=== PATIENT | female | born 1955 ===

== ENCOUNTER 2017-09-13 18:45 | Observation (INO) | payer BC ==
[2017-09-13 18:45] VITALS: BMI 26.9
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
[2017-09-13] MEDS ORDERED: Sodium Chloride 0.9% 500 ML IV STA (20:41)
[2017-09-13 21:31] LABS: BASO % 0.4 % (0.0-2.0); EOS # 0.2 K/uL (0.0-0.7); EOS % 1.6 % (0.0-4.0); LYMPH # 1.6 K/uL (1.0-4.3); LYMPH % 14.5 % (20.0-40.0); MEAN CELL VOLUME 84.2 fl (81.0-99.0); MEAN CORPUSCULAR HEMOGLOBIN 28.4 pg (27.0-31.0); MEAN CORPUSCULAR HGB CONC 33.7 g/dL (33.0-37.0); MEAN PLATELET VOLUME 7.6 fl (7.2-11.7); MONO # 0.3 K/uL (0.0-0.8); MONO % 3.2 % (0.0-10.0); NEUT # 8.7 K/uL (1.8-7.0); NEUT % 80.3 % (50.0-75.0); NRBC % 0.1 % (0.0-0.0); RBC 4.57 Mil/uL (3.80-5.20); WHITE BLOOD COUNT 10.8 K/uL (4.8-10.8)
[2017-09-13 21:42] LABS: ALB/GLOB RATIO 1.4 (1.0-2.1); ALT/SGPT 26 U/L (9-52); AST/SGOT 19 U/L (14-36); BLOOD UREA NITROGEN 15 mg/dl (7-17); GFR AFRICAN-AMERICAN > 60; GFR NON-AFRICAN AMERICAN > 60
[2017-09-13 21:45] LABS: PROTHROMBIN TIME 11.3 Seconds (9.8-13.1)
[2017-09-14] MEDS: Lactated Ringer's 1,000 ML IV SCH ×2 (06:12→16:41)
--- NOTE | 2017-09-14 09:22 | CARD ---
APPROVED REPORT EKG Measurement Heart [id number] <Conclusion> Normal sinus rhythm Left axis deviation Abnormal ECG
--- NOTE | 2017-09-14 11:02 | CT ---
PROCEDURE: CT right upper extremity without contrast History: Trauma Comparison: Right wrist 09/13/2017 Technique: Multiple contiguous axial images were performed through the pertinent right wrist without the use of intravenous contrast. Subsequently, sagittal and coronal reformatted images were obtained. This CT exam was performed using one or more of the following dose reduction techniques: Automated exposure control, adjustment of the mA and/or kV according to patient size, and/or use of iterative reconstruction technique. FINDINGS: Distal comminuted radial metaphyseal - epiphyseal acute fracture. Radiocarpal extension. The volar fracture fragment most proximal 1 is angulated volarly -distal tip at the radial lunate articulation the diastases of the fracture fragments is at least 4 mm. A distal ulnar styloid fracture fragment also noted. No dislocation appreciated Overlying soft tissue swelling present IMPRESSION: Intra articular acute distal comminuted radial metaphyseal epiphyseal fracture. Diastases of fracture fragments. Overlying soft tissue swelling. Small ulnar styloid fracture fragment also noted. No dislocation Concordant results (preliminary interpretation) provided by [facility].
--- NOTE | 2017-09-14 11:04 | RAD ---
PROCEDURE: Radiographs of the right elbow. HISTORY: pain from fall COMPARISON: No prior. FINDINGS: BONES: Questionable coronoid process fracture. JOINTS: Unremarkable. SOFT TISSUES: Normal. JOINT EFFUSION: None. OTHER FINDINGS: None. IMPRESSION: Questionable coronoid process fracture. ER notification submitted electronically.
--- NOTE | 2017-09-14 11:05 | RAD ---
PROCEDURE: Right Wrist Radiographs. HISTORY: pain from fall COMPARISON: None. FINDINGS: BONES: Comminuted distal radial fracture with extension to the radiocarpal articulation. Minimally displaced ulnar styloid fracture. JOINTS: Normal. No dislocation. SOFT TISSUES: Normal. OTHER FINDINGS: None. IMPRESSION: Comminuted, intra-articular distal radial fracture. Minimally displaced ulnar styloid fracture.
--- NOTE | 2017-09-14 11:08 | CT ---
PROCEDURE: CT HEAD WITHOUT CONTRAST. HISTORY: headache COMPARISON: None available. TECHNIQUE: Axial computed tomography images were obtained through the head/brain without intravenous contrast. Radiation dose: Total exam DLP = 814.9 mGy-cm. This CT exam was performed using one or more of the following dose reduction techniques: Automated exposure control, adjustment of the mA and/or kV according to patient size, and/or use of iterative reconstruction technique. FINDINGS: HEMORRHAGE: No intracranial hemorrhage. BRAIN: No mass effect or edema. No atrophy or chronic microvascular ischemic changes. VENTRICLES: Unremarkable. No hydrocephalus. CALVARIUM: Unremarkable. PARANASAL SINUSES: Left frontal, left maxillary and bilateral scattered ethmoid air cell opacification. Non pneumatization of the right frontal sinus. MASTOID AIR CELLS: Unremarkable as visualized. No inflammatory changes. OTHER FINDINGS: High right parietal scalp swelling. IMPRESSION: High right parietal scalp swelling. No calvarial fracture. No acute intracranial pathology.
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
--- NOTE | 2017-09-14 14:36 | RAD ---
HISTORY: Pre-op COMPARISON: 02/15/2016 FINDINGS: LUNGS: No active pulmonary disease. PLEURA: No significant pleural effusion identified, no pneumothorax apparent. CARDIOVASCULAR: Normal. OSSEOUS STRUCTURES: No significant abnormalities. VISUALIZED UPPER ABDOMEN: Normal. OTHER FINDINGS: None. IMPRESSION: No active disease.
[2017-09-14] MEDS ORDERED: Propofol 10 mg/ml Inj (20 ML) ONE (16:41)
[2017-09-14] MEDS ORDERED: Etomidate 20 mg/10ml Inj IV ONE (16:46)
[2017-09-14] MEDS ORDERED: Ropivacaine 0.5% 30ML IV ONE (16:47)
[2017-09-14] MEDS ORDERED: Lactated Ringer's 500 ML IV ONE ×2 (17:35→18:52)
[2017-09-14] MEDS ORDERED: Midazolam 2 MG/2 ML VIAL ONE (17:46)
[2017-09-14] MEDS ORDERED: Succinylcholine 200 mg/10 ml Inj IV ONE (17:56)
[2017-09-14] MEDS ORDERED: Dexamethasone 4 mg/1 ml ONE (18:03)
[2017-09-14] MEDS ORDERED: Neostigmine 1:1000 (1 mg/ml) Inj ONE (18:11)
[2017-09-14] MEDS ORDERED: Rocuronium 10 mg/ml (5 ml) ONE (18:12)
--- NOTE | 2017-09-14 18:27 | CP.PCM.CON ---
History of Present Illness - History of Present Illness History of Present Illness: came to evaluate patient but she is in the OR Past Patient History - Infectious Disease Hx of Infectious Diseases: None - Past Medical History & Family History Past Medical History?: Yes - Past Social History Smoking Status: Never Smoked - CARDIAC Hx Cardiac Disorders: Yes Hx Hypertension: Yes - PULMONARY Hx Respiratory Disorders: Yes Hx Asthma: Yes - NEUROLOGICAL Hx Neurological Disorder: No - HEENT Hx HEENT Problems: No - RENAL Hx Chronic Kidney Disease: No - ENDOCRINE/METABOLIC Hx Endocrine Disorders: Yes Hx Diabetes Mellitus Type 2: Yes - HEMATOLOGICAL/ONCOLOGICAL Hx Blood Disorders: No - INTEGUMENTARY Hx Dermatological Problems: No - MUSCULOSKELETAL/RHEUMATOLOGICAL Hx Musculoskeletal Disorders: No Hx Falls: No - GASTROINTESTINAL Hx Gastrointestinal Disorders: No - GENITOURINARY/GYNECOLOGICAL Hx Genitourinary Disorders: No - PSYCHIATRIC Hx Psychophysiologic Disorder: Yes Hx Anxiety: Yes Hx Substance Use: No - SURGICAL HISTORY Hx Surgeries: Yes Hx Coronary Stent: Yes (LAD stent, 2013) - ANESTHESIA Hx Anesthesia: Yes Hx Anesthesia Reactions: No Hx Malignant Hyperthermia: No Meds Allergies/Adverse Reactions: Allergies Allergy/AdvReac Type Severity Reaction Status Date / Time No Known Allergies Allergy Verified 09/13/17 18:47 - Medications Medications: Current Medications Atorvastatin Calcium (Lipitor) 40 mg PO HS JULIANN Enoxaparin Sodium (Lovenox) 40 mg SC DAILY [facility] PRN Reason: Protocol Lactated Ringer's (Lactated Ringer's) 1,000 mls @ 100 mls/hr IV .Q10H [facility] Last Admin: 09/14/17 16:41 Dose: 100 mls/hr Metoprolol Tartrate (Lopressor) 25 mg PO Q12 [facility] Last Admin: 09/14/17 14:48 Dose: 25 mg Results - Vital Signs Recent Vital Signs: Last Vital Signs Temp 98.4 F 09/14/17 16:28 Pulse 65 09/14/17 16:28 Resp 20 09/14/17 16:28 BP 150/87 09/14/17 16:28 Pulse Ox 99 09/14/17 16:28 - Labs Result Diagrams: 09/13/17 21:24 09/13/17 21:24 Labs: Laboratory Results - last 24 hr 09/13/17 09/13/17 09/13/17 21:24 21:24 21:24 WBC 10.8 RBC 4.57 Hgb 13.0 Hct 38.5 MCV 84.2 MCH 28.4 MCHC 33.7 RDW 14.0 Plt Count 376 MPV 7.6 Neut % (Auto) 80.3 H Lymph % (Auto) 14.5 L [place] % (Auto) 3.2 Eos % (Auto) 1.6 Baso % (Auto) 0.4 Neut # (Auto) 8.7 H Lymph # (Auto) 1.6 [place] # (Auto) 0.3 Eos # (Auto) 0.2 Baso # (Auto) 0.0 PT INR APTT Sodium 137 Potassium 3.9 Chloride 103 Carbon Dioxide 25 Anion Gap 13 BUN 15 Creatinine 0.7 Est GFR ( Amer) > 60 Est GFR (Non-Af Amer) > 60 Random Glucose 206 H Calcium 9.0 Total Bilirubin 0.6 AST 19 ALT 26 Alkaline Phosphatase 77 Troponin I < 0.0120 Total Protein 6.9 Albumin 4.0 Globulin 2.9 Albumin/Globulin Ratio 1.4 Blood Type A POSITIVE Antibody Screen Negative BBK History Checked No verified bt 09/13/17 21:24 WBC RBC Hgb Hct MCV MCH MCHC RDW Plt Count MPV Neut % (Auto) Lymph % (Auto) [place] % (Auto) Eos % (Auto) Baso % (Auto) Neut # (Auto) Lymph # (Auto) [place] # (Auto) Eos # (Auto) Baso # (Auto) PT 11.3 INR 1.0 APTT 33.0 Sodium Potassium Chloride Carbon Dioxide Anion Gap BUN Creatinine Est GFR ( Amer) Est GFR (Non-Af Amer) Random Glucose Calcium Total Bilirubin AST ALT Alkaline Phosphatase Troponin I Total Protein Albumin Globulin Albumin/Globulin Ratio Blood Type Antibody Screen BBK History Checked
[2017-09-14] MEDS ORDERED: Liquid Adhesive TOP ONE (19:02)
[2017-09-14] MEDS ORDERED: Oxycodone/Acetaminophen 5/325 mg Tab PO PRN (19:32)
[2017-09-14] MEDS ORDERED: HYDROmorphone 0.5 mg/0.5 ml ISec IVP PRN (19:32)
--- NOTE | 2017-09-14 19:37 | PCM.ANESB4 ---
Infraclavicular Block - Femoral Nerve Block Date of Procedure: 09/14/17 Anesthesiologist: Luisana Pre-Procedure Diagnosis: Right distal radius fracture Post-Procedure Diagnosis: Same Procedure Performed: Brachial Plexus at the Infraclavicular area Right - Procedure Infraclavicular Block: The procedure was explained to the patient that it is for the post-operative pain management. Consent was obtained after a thorough discussion with the patient regarding the benefits and possible complications of local anesthetic block of the brachial plexus at the infraclavicular area. The patient was brought to the operating room and standard monitors were applied. Time-out was held with the circulating nurse to confirm the correct surgery and the appropriate block. After applying oxygen by nasal cannula and administering IV Sedation, patient's head was gently rotated away from the operative __right _ shoulder and the area medial to the coracoid process and inferior to the clavicle was carefully palpated. The ultrasound transducer was then applied to the skin in the transverse plane and the brachial plexus was visualized surrounding the axillary artery and deep to the pectoralis major and minor muscles. After thorough identification, this area was prepped with Betadine solution three times and 1 % Lidocaine was injected subcutaneously for topical anesthesia. At this point, a #21 gauge Stimuplex 4-inch needle was inserted cephalad to the ultrasound transducer and inferior to the clavicle in-plane towards the posterior aspect of the axillary artery. Needle advancement was performed carefully under ultrasound visualization. Nerve stimulator was used and twitch of the affected extremity including fingers, hand, wrist and elbow was obtained at current of ___0.4__MA. After repeated negative aspiration, ___2__cc of __0.5_ __% ropivicaine was injected and this was followed with ___ 18__ cc of ____0.5___ % ropivicaine . Under ultrasound guidance the local anesthetics were observed surrounding the cords of the brachial plexus. The needle was removed intact. The patient had stable vital signs, was conscious and in no apparent distress. The patient tolerated the infraclavicular block of the brachial plexus well with stable vital signs was prepared for subsequent surgery.
--- NOTE | 2017-09-14 19:42 | PCM.SURG1 ---
Surgeon's Initial Post Op Note - Surgeon's Notes Surgeon: Dr. Celena Winters, Dr. Fritz Lutz Vamp Presser: Dr. Silas Weber DPM PGY-1 Type of Anesthesia: General LMA, Block Regional Anesthesia Administered By: Dr. Oscar Lieberman Pre-Operative Diagnosis: Right Wrist fracture Operative Findings: See dictation Post-Operative Diagnosis: Right Wrist fracture Operation Performed: Right wrist ORIF Specimen/Specimens Removed: none Estimated Blood Loss: EBL {In ML}: 5 Blood Products Given: N/A Drains Used: No Drains Post-Op Condition: Good Date of Surgery/Procedure: 09/14/17 Time of Surgery/Procedure: 19:42
[2017-09-14] MEDS ORDERED: Insulin Regular 100 units/ml SC ONE (19:45)
[2017-09-14] MEDS: Oxycodone/Acetaminophen 5/325 mg Tab PO PRN (21:46)
[2017-09-15] MEDS: Lactated Ringer's 1,000 ML IV SCH ×2 (06:12→16:28)
[2017-09-15 06:46] LABS: HEMOGLOBIN 13.8 g/dL (12.0-16.0); MEAN CELL VOLUME 83.8 fl (81.0-99.0); MEAN CORPUSCULAR HEMOGLOBIN 28.9 pg (27.0-31.0); MEAN CORPUSCULAR HGB CONC 34.4 g/dL (33.0-37.0); RBC 4.8 Mil/uL (3.80-5.20); WHITE BLOOD COUNT 10.9 K/uL (4.8-10.8)
[2017-09-15 07:10] LABS: LDL CHOLESTEROL 142 mg/dL (0-129)
[2017-09-15 07:12] LABS: BLOOD UREA NITROGEN 11 mg/dl (7-17); CALCIUM 9.2 mg/dL (8.4-10.2); GFR AFRICAN-AMERICAN > 60; GFR NON-AFRICAN AMERICAN > 60; HDL CHOLESTEROL 49 MG/DL (30-70)
[2017-09-15 08:09] VITALS: RESP 20; TEMP 97.4
[2017-09-15] MEDS ORDERED: Enoxaparin 40 mg Syringe SC SCH (09:00)
--- NOTE | 2017-09-15 11:44 | RAD ---
PROCEDURE: Right Wrist Radiographs. HISTORY: s/p right wrist ORIF COMPARISON: Right wrist series [id number]. FINDINGS: BONES: Patient is now status post open reduction internal fixation of distal right radial comminuted Colles fracture with volar compression plate in position transfixed to the distal radius for multiple screws including of major fracture fragments. Adequate reduction achieved. Soft tissue edema is reiterated at the fracture site and cast material obscures fine bony and soft tissue details. No dislocation or subluxation identified grossly. Ulnar styloid fracture reiterated. JOINTS: No subluxation. No dislocation. SOFT TISSUES: As above. OTHER FINDINGS: None. IMPRESSION: Status post ORIF distal right radial fracture appearing adequately reduced. Please see discussion above.
--- NOTE | 2017-09-15 12:09 | CP.PCM.DIS ---
Provider - Provider Date of Admission: 09/13/17 20:53 Attending physician: Lupillo Connor MD Primary care physician: Dr. Camarena Consults: Dr. Gonzalez, Dr. Winters Time Spent in preparation of Discharge (in minutes): 30 Diagnosis - Discharge Diagnosis (1) Head injury Status: Acute Priority: Low (2) Wrist fracture Status: Acute Priority: Medium (3) Diabetes mellitus type 2, uncontrolled Status: Chronic Priority: Low (4) CAD (coronary artery disease) Status: Chronic Priority: Low (5) H/O heart artery stent Status: Chronic Priority: Low Hospital Course - Lab Results Lab Results: Most Recent Lab Values WBC 10.9 K/uL (4.8-10.8) H 09/15/17 05:40 RBC 4.80 Mil/uL (3.80-5.20) 09/15/17 05:40 Hgb 13.8 g/dL (12.0-16.0) 09/15/17 05:40 Hct 40.2 % (34.0-47.0) 09/15/17 05:40 MCV 83.8 fl (81.0-99.0) 09/15/17 05:40 MCH 28.9 pg (27.0-31.0) 09/15/17 05:40 MCHC 34.4 g/dL (33.0-37.0) 09/15/17 05:40 RDW 14.0 % (11.5-14.5) 09/15/17 05:40 Plt Count 390 K/uL (130-400) 09/15/17 05:40 MPV 7.6 fl (7.2-11.7) 09/13/17 21:24 Neut % (Auto) 80.3 % (50.0-75.0) H 09/13/17 21:24 Lymph % (Auto) 14.5 % (20.0-40.0) L 09/13/17 21:24 [place] % (Auto) 3.2 % (0.0-10.0) 09/13/17 21:24 Eos % (Auto) 1.6 % (0.0-4.0) 09/13/17 21:24 Baso % (Auto) 0.4 % (0.0-2.0) 09/13/17 21:24 Neut # (Auto) 8.7 K/uL (1.8-7.0) H 09/13/17 21:24 Lymph # (Auto) 1.6 K/uL (1.0-4.3) 09/13/17 21:24 [place] # (Auto) 0.3 K/uL (0.0-0.8) 09/13/17 21:24 Eos # (Auto) 0.2 K/uL (0.0-0.7) 09/13/17 21:24 Baso # (Auto) 0.0 K/uL (0.0-0.2) 09/13/17 21:24 PT 11.3 Seconds (9.8-13.1) 09/13/17 21:24 INR 1.0 (0.9-1.2) 09/13/17 21:24 APTT 33.0 Seconds (25.6-37.1) 09/13/17 21:24 Sodium 136 mmol/l (132-148) 09/15/17 05:40 Potassium 4.8 MMOL/L (3.6-5.0) 09/15/17 05:40 Chloride 99 mmol/L (98-107) 09/15/17 05:40 Carbon Dioxide 26 mmol/L (22-30) 09/15/17 05:40 Anion Gap 16 (10-20) 09/15/17 05:40 BUN 11 mg/dl (7-17) 09/15/17 05:40 Creatinine 0.6 mg/dl (0.7-1.2) L 09/15/17 05:40 Est GFR ( Amer) > 60 09/15/17 05:40 Est GFR (Non-Af Amer) > 60 09/15/17 05:40 POC Glucose (mg/dL) 191 mg/dL (65-110) H 09/15/17 10:56 Random Glucose 222 mg/dL (65-105) H 09/15/17 05:40 Calcium 9.2 mg/dL (8.4-10.2) 09/15/17 05:40 Total Bilirubin 0.6 mg/dl (0.2-1.3) 09/13/17 21:24 AST 19 U/L (14-36) 09/13/17 21:24 ALT 26 U/L (9-52) 09/13/17 21:24 Alkaline Phosphatase 77 U/L (38-126) 09/13/17 21:24 Troponin I < 0.0120 ng/mL (0.00-0.120) 09/13/17 21:24 Total Protein 6.9 G/DL (6.3-8.2) 09/13/17 21:24 Albumin 4.0 g/dL (3.5-5.0) 09/13/17 21:24 Globulin 2.9 gm/dL (2.2-3.9) 09/13/17 21:24 Albumin/Globulin Ratio 1.4 (1.0-2.1) 09/13/17 21:24 Triglycerides 75 mg/DL (0-149) D 09/15/17 05:40 Cholesterol 235 mg/dL (0-199) H 09/15/17 05:40 LDL Cholesterol Direct 142 mg/dL (0-129) H 09/15/17 05:40 HDL Cholesterol 49 MG/DL (30-70) 09/15/17 05:40 Blood Type A POSITIVE 09/13/17 21:24 Antibody Screen Negative 09/13/17 21:24 BBK History Checked No verified bt 09/13/17 21:24 - Hospital Course Hospital Course: 62 yr old F admitted for right radial fracture. Patient had right ORIF, today is POD # 1, tolerated procedure well. Is tolerating PO diet, has normal urine output. Tolerating PT. Patient was discharged stable with instructions to follow up with her PMD and orthopedics within 1 week, take medications as prescribed. - Date & Time of H&P Date of H&P: 09/14/17 Time of H&P: 09:00 Discharge Exam - Head Exam Head Exam: ATRAUMATIC, NORMOCEPHALIC - Eye Exam Eye Exam: Normal appearance - ENT Exam ENT Exam: Mucous Membranes Moist - Neck Exam Neck exam: Full Rom - Respiratory Exam Respiratory Exam: NORMAL BREATHING PATTERN - Cardiovascular Exam Cardiovascular Exam: REGULAR RHYTHM - GI/Abdominal Exam GI & Abdominal Exam: Normal Bowel Sounds - Extremities Exam Additional comments: right arm in cast, ERROL bandage clean/dry/intact - Neurological Exam Neurological exam: Alert, CN II-XII Intact (grossly intact), Oriented x3 - Psychiatric Exam Psychiatric exam: Normal Affect, Normal Mood - Skin Skin Exam: Dry, Normal Color, Warm Discharge Plan - Follow Up Plan Condition: IMPROVED Disposition: HOME/ ROUTINE Instructions: Wrist Fracture (DC) Additional Instructions: follow up with primary MD and surgeon 1 week Referrals: Celena Winters MD [Staff Provider] - Tee Camarena MD [Family Provider] -
[2017-09-15] MEDS: Oxycodone/Acetaminophen 5/325 mg Tab PO PRN ×2 (12:37→15:09)
[2017-09-15 16:28] VITALS: PULSE 84; O2SAT 94
[2017-09-15 16:53] VITALS: BP 178/81
--- NOTE | 2017-09-16 09:52 | RAD ---
PROCEDURE: Intraoperative Fluoroscopy. HISTORY: FINDINGS: Fluoroscopic assistance was provided for right wrist ORIF.. Please refer to the operative report from Dr. Winters. 33 seconds of fluoro time was utilized with a cumulative radiation dose of 0.32 mGy.
--- NOTE | 2017-09-17 00:19 | CON ---
DATE: 09/14/2017 CHIEF COMPLAINT: Right wrist fracture. HISTORY: The patient is a 62-year-old female, right hand dominant, who fell onto her right wrist. The patient presented to emergency room with the x-rays and CT scan showing a comminuted displaced intraarticular distal radius fracture. The patient denied pain in any other extremity joint. The patient was seen in the emergency room and due to complex nature of the fracture, were indicated for open reduction and internal fixation. The patient was admitted and taken to the operating room for surgical fixation. Celena Winters MD
--- NOTE | 2017-09-17 00:44 | OP ---
PROCEDURE DATE: 09/14/2017 ATTENDING PHYSICIAN: Celena Winters MD CONTROL EQUIPMENT ELECTRICIAN: Anna Lutz MD PREOPERATIVE DIAGNOSIS: Right wrist intra-articular comminuted distal radius fracture. POSTOPERATIVE DIAGNOSIS: Right wrist intra-articular comminuted distal radius fracture. PROCEDURES: 1. Right wrist open reduction and internal fixation of a four-part comminuted and displaced intra-articular fracture. 2. Bone grafting of the bone comminution and defect. 3. Extensive debridement of the soft tissue and bone. 4. A sugar-tong splint placement. 5. Fluoroscopic use of one hour. ANESTHESIA TYPE: General and nerve block. ESTIMATED BLOOD LOSS: 30 mL. COMPLICATIONS: None. HISTORY: Patient is a 62-year-old female who fell and presented to the emergency room with a displaced intra-articular and comminuted distal radius fracture. The patient was indicated for surgical fixation, taken to the operating room. DESCRIPTION OF THE PROCEDURE: The patient was brought into operating room and placed supine. She was given appropriate prophylactic antibiotics. She underwent general anesthesia and a nerve block. A well-padded tourniquet was applied to the patient's right arm, and the right wrist was draped and prepped in standard sterile manner. First, a time-out was completed confirming the patient's right wrist to be the correct operative site. X-rays were taken showing comminuted and displaced and unstable distal radius fracture. We proceeded with a standard volar approach. A 6-cm incision was made extending over the FCR. The sheath was identified and incised. The interval between FCR and radial artery was found. The skin dissection was taken down until the quadratus pronator which was sharply dissected off the bone. The fracture was identified. Extensive irrigation was performed to evacuate fracture hematoma. Using rongeur, extensive debridement of soft tissue and bone was performed. There was significant comminution and bone defect which was fixed with a cancellous chip bone graft. First, a 0.62 K-wire was used to fix the radial styloid up to the shaft, next retraction and volar angulation. Reduction was performed. For fixation, we used [employer] distal radius plate. A semi-sized plate was placed with multiple K-wires to provisionally hold the plate in place and reduction. The reduction was confirmed both on AP and lateral radiographs and found to be satisfactory. Next, we proceeded with multiple locking screws in a distal fragment. Next, a cortical shaft screw was placed to reduce the plate to the bone and also restore the volar tilt. Additional locking screw was placed into the shaft for further secure fixation of the plate to the bone. Also, additional styloid screws were placed to secure the styloid fragment. Multiple AP and lateral radiographs were taken, were showing adequate fracture reduction and no penetration of the joint. Afterwards, the wound was copiously irrigated and closed in a standard manner by Dr. Lutz. Sterile dressing was applied. The patient was placed in a sugar-tong splint. The patient was extubated. She was transferred to [facility] and taken to the recovery room. There were no complications of surgery. Dr. Lutz was present for the entirety of the case, as his participation was crucial in patient positioning, skin dissection, retraction of critical neurovascular structures, fracture reduction, proper implant positioning, and successful completion of the surgery. Celena Winters MD
== END 2017-09-15 17:30 | disposition home or self-care (01) ==
LOC: H.ER 18:45 → H.ERHOLD 20:53 → H.MEDSURG1 22:55
PROVIDERS: ADMIT Family Medicine; ATTEND Family Medicine
DX: S52.571A Other intraarticular fracture of lower end of right radius, initial encounter for closed fracture (principal); S09.90XA Unspecified injury of head, initial encounter; E11.65 Type 2 diabetes mellitus with hyperglycemia; I10 Essential (primary) hypertension; E78.5 Hyperlipidemia, unspecified; E78.00 Pure hypercholesterolemia, unspecified; I25.10 Atherosclerotic heart disease of native coronary artery without angina pectoris; J45.909 Unspecified asthma, uncomplicated; W03.XXXA Other fall on same level due to collision with another person, initial encounter; F41.9 Anxiety disorder, unspecified; Z91.14 Patient's other noncompliance with medication regimen; Z95.5 Presence of coronary angioplasty implant and graft; Z79.84 Long term (current) use of oral hypoglycemic drugs; Y92.480 Sidewalk as the place of occurrence of the external cause
CPT/HCPCS: 11044; 25609; 36415; 64415; 70450; 71045; 73080; 73110; 73200; 80048; 80053; 80061; 82948; 83036; 84484; 85025; 85027; 85610; 85730; 86850; 86900; 93005; 96372; 97161; 99285; G0378; G8978; G8979; G8980; J0330; J0690; J1100; J1650; J1885; J2001; J2250; J2405; J2704; J2710; J2765; J7040; J7120